=== PATIENT | female | born 1955 | race Caucasian/White ===

== ENCOUNTER 2016-12-24 07:44 | Emergency (ER) | payer MEDICAID, OTHER ==
[~2016-12-24] VITALS: Ht 182.9 cm; Wt 104.0 kg
[~2016-12-24 07:44] MED LIST: AMLO-145; ANAS1TAB5; BENA10TA48; CALC-133; NO NEW MEDS
[2016-12-24 07:46] VITALS: Ht 182.9 cm; Wt 104.0 kg
--- NOTE | 2016-12-24 08:33 | ERD ---
ER Documentation Chief Complaint Date/Time DATE: 12/24/16 TIME: 08:28 Chief Complaint Complains of left ankle pain after a fall HPI Patient is a 61-year-old female who presents to the ED with left ankle and foot pain 5 days. States that she missed a step and fell in an inversion ankle manner. She denies pain above her ankle joint. Denies losing consciousness, headache or dizziness or passing out. She states that she has been elevating and icing which has helped with the swelling. She states that the swelling has decreased. She is able to ambulate and bear weight however she does have some pain. Denies leg pain or leg swelling. She has no other complaints and has not taken any medication for her symptoms. ROS All systems reviewed and are negative except as per history of present illness. Medications Home Meds Active Scripts Ibuprofen* (Motrin*) 400 Mg Tab, 400 MG PO Q6, #30 TAB Prov:TANAY PARMAR PA-C 12/24/16 Reported Medications [No New Meds] No Conflict Check 12/06/10 Calcium Carbonate/Vitamin D3 (Oyster Shell Calcium +D Tablet) 1 Tab Tablet 12/27/09 Benazepril Hcl* (Benazepril Hcl*) 10 Mg Tablet 12/27/09 Anastrozole (Arimidex) 1 Mg Tablet 12/27/09 Amlodipine Besylate* (Amlodipine Besylate*) 5 Mg Tablet 12/27/09 Allergies Allergies: Coded Allergies: No Known Drug Allergies (Verified Allergy, Mild, 12/06/10) PMhx/Soc History of Surgery: Yes (COLECTOMY,BREAST) Anesthesia Reaction: No Hx Neurological Disorder: No Hx Respiratory Disorders: No Hx Cardiac Disorders: Yes (HTN) Hx Psychiatric Problems: No Hx Miscellaneous Medical Probl: No Hx Alcohol Use: No Hx Substance Use: No Hx Tobacco Use: No FmHx Family History: No coronary disease, No diabetes, No other Physical Exam Vitals Vital Signs Date Time Temp Pulse Resp B/P Pulse Ox O2 Delivery O2 Flow Rate FiO2 12/24/16 07:46 97.2 87 20 150/86 98 Physical Exam GENERAL: Well-developed, well-nourished female. Appears in no acute distress. HEAD: Normocephalic, atraumatic. EYES: Pupils are equally reactive bilaterally. EOMs grossly intact. No conjunctival erythema. ENT: Moist mucous membranes. No uvula deviation. No kissing tonsils. No exudates. NECK: Supple. No lymphadenopathy or thyromegaly. No meningismus. negative kernig. negative brudinski. LUNG: Clear to auscultation bilaterally. No rhonchi, wheezing, rales or coarse breath sounds. HEART: Regular rate and rhythm. No murmurs, rubs or gallops. Extremities: Equal pulses bilaterally. No peripheral clubbing, cyanosis or edema. No unilateral leg swelling. Tenderness to lateral malleolus. Tenderness to the base of the fifth metatarsal. No open wounds, deformities or step offs. No laceration. No signs of infection. Pulses intact bilaterally. Non tender to proximal fibular. Sensation intact bilaterally. Negative Pita sign. dorsiflexion, extension, inversion and eversion intact bilaterally. NEUROLOGIC: Alert and oriented. Moving all four extremities. 5/5 strength in all extremities. Normal speech. unSteady gait. SKIN: Normal color. Warm and dry. No rashes or lesions. Capillary refill < 2 seconds Procedures/MDM ER COURSE: I kept the patient and/or family informed of laboratory and diagnostic imaging results throughout the emergency room course. MEDICAL DECISION MAKING: This is a 61-year-old female who presents with ankle and foot pain after sustaining a fall 5 days ago. Vital signs were reviewed. Patient is afebrile. Patient is not hypoxic. Is not toxic or ill-appearing. X-rays are by radiologist unremarkable for fracture or dislocation. Shows soft tissue swelling. Likely has an ankle sprain. Low suspicion for dislocation, fracture , septic joint, compartment syndrome, osteomyelitis, cellulitis, avascular necrosis, neurological injury, vascular injury, tendon laceration. She did not want any pain medications here in the ED. Patient was given an Silvio wrap and offered crutches. Patient was neurovascularly intact post placement. DISCHARGE: At this time, patient is stable for discharge and outpatient management with no new complaints during the ER course. Patient was sent home with Silvio wrap, crutches, and advised to use RICE. Patient will be discharged home with instructions to recheck for new or worsening symptoms such as fever, nausea, weakness, LOC and to follow up with primary care in the next 1-2 days. Patient was advised to return to the ER for any new or worsening symptoms. Plan was discussed and patient and/or family understands and agrees. Home instructions were given. Departure Diagnosis: Primary Impression: Ankle sprain Encounter type: initial encounter Involved ligament of ankle: unspecified ligament Laterality: left Qualified Code: S93.402A - Sprain of left ankle, unspecified ligament, initial encounter Condition: Stable TANYA PARMAR PA-C Dec 24, 2016 08:33
[2016-12-24] MEDS ORDERED: IBUP400T22 PO (09:03)
--- NOTE | 2016-12-24 09:24 | RADRPT ---
PROCEDURE: XR Ankle. CLINICAL INDICATION: Pain. TECHNIQUE: AP, lateral, and oblique views of the left ankle were performed. COMPARISON: None. FINDINGS: The osseous structures and articular spaces of the left ankle appear intact. No acute fracture or dislocation is seen. No radiopaque foreign body is identified. There is mild lateral soft tissue sw elling. IMPRESSION: 1. Mild lateral soft tissue swelling. 2. No acute fracture or dislocation.. RPTAT: GG .Jef Elmore MD, MD Date Time Electronically viewed and signed by .Jef Elmore MD, on 12/24/2016 09:24 .L/
--- NOTE | 2016-12-24 09:24 | RADRPT ---
PROCEDURE: XR Foot. CLINICAL INDICATION: Left foot pain. TECHNIQUE: AP, oblique, and lateral views of the left foot are available for review. COMPARISON: None available FINDINGS: The osseous structures, articular spaces, and surrounding soft tissues are intact. No acute fractur e or dislocation is seen. No radiopaque foreign body is identified. Bony mineralization is normal. IMPRESSION: 1. Unremarkable left foot x-ray series. RPTAT: GG .Jef Elmore MD, MD Date Time Electronically viewed and signed by .Jef Elmore MD, on 12/24/2016 09:24 .L/
== END 2016-12-24 09:58 | disposition home or self-care (01) ==
LOC: FTE 07:44
DX: S93.402A Sprain of unspecified ligament of left ankle, initial encounter (principal); I10 Essential (primary) hypertension; W10.9XXA Fall (on) (from) unspecified stairs and steps, initial encounter; Y92.9 Unspecified place or not applicable
CPT/HCPCS: 73610; 73630; Z7502